=== PATIENT | female | born 1965 | race Caucasian/White ===

== ENCOUNTER 2021-05-15 16:11 | Emergency (ER) | payer OTHER ==
[2021-05-15] MEDS ORDERED: Magic Mouth Wash PO (17:47)
== END 2021-05-15 19:20 | disposition home or self-care (01) ==
LOC: ER1 16:11
DX: R07.0 Pain in throat (principal); E11.9 Type 2 diabetes mellitus without complications; Z20.822 Contact with and (suspected) exposure to COVID-19
CPT/HCPCS: 87081; 87880; 99283; U0002

== ENCOUNTER → 2022-02-05 | Outpatient (CLI) | payer OTHER ==
[~2022-02-05] MED LIST: Magic Mouth Wash PO
== END ==
LOC: KOH-I 15:14
DX: J32.9 Chronic sinusitis, unspecified (principal)
CPT/HCPCS: 70486